=== PATIENT | male | born 1995 | race African-American/Black ===

== ENCOUNTER 2017-02-13 23:54 | Emergency (ER) | payer MEDICAID ==
[~2017-02-13] VITALS: Ht 182.9 cm; Wt 113.0 kg
[2017-02-14] MEDS ORDERED: ONDANSETRON HCL 4MG/2ML VIAL IV STA (00:40)
[2017-02-14] MEDS ORDERED: SODIUM CHLORIDE 0.9% 1,000 ML IV ONE (00:40)
[2017-02-14 01:04] LABS: BASOPHILS % 0.4 % (0.0-2.0); EOSINOPHILS % 0.8 % (0.0-5.0); HEMATOCRIT. 41.4 % (42.0-52.0); HEMOGLOBIN. 13.2 g/dL (14.0-18.0); LYMPHOCYTES % 19.3 % (20.0-50.0); MEAN CORPUSCULAR HEMOGLOBIN 24.5 pg (28.0-32.0); MEAN CORPUSCULAR VOLUME 76.7 fL (80.0-94.0); MEAN PLATELET VOLUME 8.4 fl (7.4-10.4); MONOCYTES % 14.7 % (2.0-8.0); NEUTROPHILS % 64.8 % (40.0-76.0); PLATELET 238 x1000/uL (130-400); RED CELL DISTRIBUTION WIDTH 14.9 % (11.6-14.6)
[2017-02-14 01:20] LABS: CARBON DIOXIDE 29 mEq/L (21-32); CHLORIDE 102 mEq/L (98-107); TROPONIN I < 0.02 ng/mL (0.00-0.04)
[2017-02-14 05:14] VITALS: BP 130/72
== END 2017-02-14 06:09 | disposition home or self-care (01) ==
LOC: ER 23:54
DX: R55 Syncope and collapse (principal); J45.909 Unspecified asthma, uncomplicated; E86.0 Dehydration
CPT/HCPCS: 36415; 70450; 71010; 80053; 84484; 85025; 93005; 96360; 96361; 99285; Z7610; J7030